=== PATIENT | male | born 2000 | race Caucasian/White ===

== ENCOUNTER → 2023-03-17 | Outpatient (CLI) | payer BC | LOC: CARD 09:44 | PROVIDERS: ATTEND Family Medicine | DX: R00.2 Palpitations (principal) | CPT/HCPCS: 93246; C8929; 93306 ==

== ENCOUNTER → 2023-06-10 | Outpatient (CLI) | payer BC ==
[2023-06-10 14:34] VITALS: BP 144/42
--- NOTE | 2023-06-11 08:17 | Cardiology Stress Test Report ---
Stress Test Report Date of Procedure/Referring: Date of Procedure: Jun 10, 2023 PCP Aleksey Mckeon MD Admitting Physician Admitting Physician: Attending Physician: Gabriel Rader MD Baseline Heart Rate: 71 Baseline Blood Pressure: Blood Pressure Systolic: 144 Blood Pressure Diastolic: 42 Baseline EKG: Baseline EKG: NSR Summary/Conclusion: Summary: In summary, the patient started exercising with a baseline heart rate, blood pressure and EKG mentioned above Patient was able to exercise for a total of 10 minutes on Ezequiel protocol, METs 11.7 Maximum heart rate 188 Maximum blood pressure 200/44 Stress EKG, Minimal nondiagnostic changes Recovery EKG , Return to baseline Conclusion: Good exercise tolerance for a total of 10 minutes on standard Ezequiel protocol, 11.7 METS achieving 95% of maximal expected heart rate Occasional PVCs noted during exercise otherwise no arrhythmia detected Minimal nondiagnostic EKG changes with exercise return to baseline during recovery Hypertensive response to exercise with peak blood pressure 200/44 return to baseline during recovery. Copy Copies To 1: ALEKSEY MCKEON MD, BASHAR J MD Jun 11, 2023 08:17
== END ==
LOC: CARD 14:45
PROVIDERS: ATTEND Internal Medicine Cardiovascular Disease
DX: R00.2 Palpitations (principal)
CPT/HCPCS: 93017